=== PATIENT | female | born 1970 | race Caucasian/White ===

== ENCOUNTER 2017-09-08 18:28 | Emergency (ER) | payer OTHER ==
[~2017-09-08] VITALS: Ht 162.6 cm; Wt 113.4 kg
[~2017-09-08 18:28] MED LIST: METF500T7 PO; ROSI2TAB PO; [UNRECOGNIZED DRUG - CODE] IM
[2017-09-08 18:36] VITALS: BP 116/57
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
--- NOTE | 2017-09-08 19:54 | NUR ---
PT TAKEN TO CT
[2017-09-08 21:44] VITALS: BP 115/55
== END 2017-09-08 21:44 | disposition home or self-care (01) ==
LOC: MED 18:28
DX: S20.219A Contusion of unspecified front wall of thorax, initial encounter (principal); E11.9 Type 2 diabetes mellitus without complications; K21.9 Gastro-esophageal reflux disease without esophagitis; E07.9 Disorder of thyroid, unspecified; Z79.899 Other long term (current) drug therapy; V43.62XA Car passenger injured in collision with other type car in traffic accident, initial encounter; Y93.89 Activity, other specified; Y92.488 Other paved roadways as the place of occurrence of the external cause; Y99.8 Other external cause status
CPT/HCPCS: 71250; 81025; 99284

== ENCOUNTER 2022-03-04 18:42 | Emergency (ER) | payer OTHER ==
[~2022-03-04] VITALS: Ht 162.6 cm; Wt 103.0 kg
[~2022-03-04 18:42] MED LIST changes: +METF-938 PO; -METF500T7 PO
[2022-03-04 18:49] VITALS: BP 175/111
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
[2022-03-04] MEDS ORDERED: traMADol 50 MG TAB PO ONE (19:20)
[2022-03-04 20:30] VITALS: BP 121/66
[2022-03-04] MEDS ORDERED: TRAM50TA1 PO (20:52)
--- NOTE | 2022-03-04 21:15 | NUR ---
Patient discharged with v/s stable. Written and verbal after care instructions given and explained. Patient alert, oriented and verbalized understanding of instructions. Ambulatory with steady gait. All questions addressed prior to discharge. ID band removed. Patient advised to follow up with PMD. Rx SENT TO PHARMACY. Patient educated on indication of medication including possible reaction and side effects. Opportunity to ask questions provided and answered.
== END 2022-03-04 21:08 | disposition home or self-care (01) ==
LOC: MED 18:42
DX: S20.02XA Contusion of left breast, initial encounter (principal); S10.93XA Contusion of unspecified part of neck, initial encounter; S40.012A Contusion of left shoulder, initial encounter; E11.9 Type 2 diabetes mellitus without complications; K21.9 Gastro-esophageal reflux disease without esophagitis; Z86.39 Personal history of other endocrine, nutritional and metabolic disease; Z79.899 Other long term (current) drug therapy; X58.XXXA Exposure to other specified factors, initial encounter; Y92.89 Other specified places as the place of occurrence of the external cause; Y93.89 Activity, other specified; Y99.8 Other external cause status
CPT/HCPCS: 71046; 99283